=== PATIENT | male | born 1945 | race Caucasian/White ===

== ENCOUNTER → 2020-11-08 | Outpatient (CLI) | payer OTHER, MEDICARE ==
[~2020-11-08] VITALS: Ht 182.9 cm; Wt 108.9 kg
[~2020-11-08] MED LIST: ASA81BEC PO; BIOTIN5 M1 PO; NORVASC10 MG PO; ROSUVASTATIN CAL5 MG PO; VITAMIN D350 MC3 PO; ZETIA10 MG PO; ZINC50 M2 PO
--- NOTE | ~2020-11-08 | P ---
[facility] [place] [address] PROCEDURE REPORT Name: KISHORE GONSALVES Room #: REG JEANE Shannon#: [id number] Admission: 11/08/20 Attend Phys: Carlos Heredia Discharge: Date of : 49 Report #: [id number] THIS REPORT FOR: cc: FAM - Family physician unknown FAM - Family physician unknown Carlos John MD ~ DOC #: [id number] cc: Dr. Ezekiel John MD DATE OF SERVICE: 11/08/2020 PROCEDURE PERFORMED: Colonoscopy with biopsies. HISTORY OF PRESENT ILLNESS: The patient is a 75-year-old male who presents today for routine screening colonoscopy. Last one was approximately 11 years ago and reportedly negative. No family history of colon cancer. He denies any symptoms. DESCRIPTION OF PROCEDURE: The risks and benefits of the procedure were explained to the patient, those risks including but not limited to bleeding, perforation and the risk of sedation. He understood these risks and gave informed consent. Sedation was given using propofol per anesthesia. Next, a digital rectal exam was initially performed, which was normal. Next, using a standard Olympus colonoscope, the scope was placed in the patient's anus and advanced under direct vision to the cecum. The overall prep was good. The cecum and ileocecal valve were normal in appearance. The ascending colon was normal. In the transverse colon, a 3 mm sessile polyp was noted. This was removed with cold forceps, otherwise normal. In the descending colon, a 4 mm sessile polyp also removed with cold forceps. The sigmoid colon was normal. In the rectum, two 3 mm sessile polyps were noted, both removed with cold forceps. The scope was then withdrawn and the procedure terminated. The patient tolerated the procedure well. IMPRESSION: 1. Small colonic polyps as described above. 2. Otherwise, normal colonoscopy. RECOMMENDATIONS: 1. Await biopsy results. 2. If polyps are hyperplastic, repeat colonoscopy in 10 years; if adenomatous polyp, repeat in 5 years. Thank you for allowing me to participate in his care. Carlos John MD [address] [address] PROCEDURE REPORT Name: KISHORE GONSALVES Room #: REG Marion Ortega#: [id number] Admission: 11/08/20 Attend Phys: Carlos Heredia Discharge: Date of : 49 Report #: [id number] HADLEY/MUK By: [id number] Carlos John MD /nt
--- NOTE | 2020-11-12 19:07 | PATH ---
[facility] [address] [address] PATHOLOGY RPT PROCEDURE Name: KISHORE GONSALVES Room #: REG JEANE Hope.#: [id number] Admission: 11/08/20 Date of : 49 Discharge: Report #: [id number] Path Case #: [id number] [facility] Accession Number: [id number] . 01 Material submitted: . PART A: colon - BX TRANSVERSE COLON POLYP. Modifiers: transverse PART B: colon - BX DESCENDING COLON POLYP. Modifiers: descending PART C: rectum - BX RECTAL POLYPS X2 . 01 Clinical history: . COLONOSCOPY SCREENING COLON CANCER . 01 Frozen section diagnosis: . . /QMS . 02 Diagnosis: A. Polyp, transverse colon polyp, endoscopic biopsy: - Tubular adenoma. - Negative for high-grade dysplasia. . B. Polyp, descending colon polyp, endoscopic biopsy: - Hyperplastic polyp. - Negative for dysplasia. . C. Polyp x2, rectal polyp, endoscopic biopsy: - Hyperplastic polyp identified in both fragments. - Negative for dysplasia. (IUV:mina; 11/12/2020) QMS 11/12/2020 1416 Local . 02 Electronically signed: . Tesha Sauer MD, Pathologist NPI- [id number] . 01 Gross description: . A. Received in formalin labeled "Kishore Gonsalves, BX transverse colon polyp" are 2 currie-brown soft tissue fragments measuring in aggregate 0.8 x 0.2 x 0.1 cm. The specimen is submitted entirely in A1. . B. Received in formalin labeled "Kishore Gonsalves, BX descending colon polyp" are 2 currie-brown soft tissue fragments measuring in aggregate 0.5 x 0.3 x 0.1 cm. The specimen is submitted entirely in B1. . C. Received in formalin labeled "Kishore Gonsalves, rectal polyps BX" and additionally labeled with the requisition as "x2" [place] [address] PATHOLOGY RPT PROCEDURE Name: KISHORE GONSALVES Room #: REG CLI [facility].#: [id number] Admission: 11/08/20 Date of : 49 Discharge: Report #: [id number] Path Case #: [id number] of currie-brown soft tissue measuring 0.3 x 0.3 x 0.1 cm. No other tissue is identified. The specimen is submitted entirely in C1. ([facility]; 11/10/2020) [facility] 11/10/2020 0917 Local . 02 Microscopic: . . . . 02 Pathologist provided ICD-10: D12.3, K63.5, K62.1 . 02 CPT . 786601, 151380, 631493 Specimen Comment: A courtesy copy of this report has been sent to [phone] Specimen Comment: Report sent to / DR AZEVEDO Performed at: [address], [place] [id number] MD Carlos Scott MD Phone: [phone] Performed at: [address] [id number] MD Tesha Sauer MD Phone: [phone]
== END | disposition home or self-care (01) ==
LOC: GI 07:50
PROVIDERS: ATTEND Specialist
DX: Z12.11 Encounter for screening for malignant neoplasm of colon (principal); Z86.010 Personal history of colon polyps; D12.3 Benign neoplasm of transverse colon; K62.1 Rectal polyp; I10 Essential (primary) hypertension; E78.5 Hyperlipidemia, unspecified; Z98.890 Other specified postprocedural states; Z79.899 Other long term (current) drug therapy
CPT/HCPCS: 62110; 62900

== ENCOUNTER → 2020-12-13 | Outpatient (CLI) | payer OTHER, MEDICARE | LOC: SJCVC 15:14 | PROVIDERS: ATTEND Internal Medicine Cardiovascular Disease | DX: R94.31 Abnormal electrocardiogram [ECG] [EKG] (principal); I44.0 Atrioventricular block, first degree; I08.0 Rheumatic disorders of both mitral and aortic valves; R93.1 Abnormal findings on diagnostic imaging of heart and coronary circulation; I10 Essential (primary) hypertension; I25.10 Atherosclerotic heart disease of native coronary artery without angina pectoris; E78.00 Pure hypercholesterolemia, unspecified; E78.5 Hyperlipidemia, unspecified; M10.9 Gout, unspecified; N40.0 Benign prostatic hyperplasia without lower urinary tract symptoms; Z98.890 Other specified postprocedural states; Z93.3 Colostomy status; Z88.8 Allergy status to other drugs, medicaments and biological substances; Z79.899 Other long term (current) drug therapy ==